=== PATIENT | female | born 1995 | race Two or more races ===

== ENCOUNTER 2024-07-17 03:56 | Inpatient (IN) | payer MEDICAID ==
[2024-07-15 11:56] LABS: Basophils # (auto) 0 10 ^3/uL (0-0.2); Basophils % (auto) 0.2 % (0.0-2.0); Neutrophils # (auto) 6.1 10 ^3/uL (1.6-8.6); White Blood Cell 9.2 10^3/uL (4.4-10.8)
[2024-07-15 11:58] LABS: Eosinophils # (auto) 0.2 10 ^3/uL (0-0.8); Eosinophils % (auto) 1.8 % (0.0-7.0); Hemoglobin 11.7 g/dL (12.2-16.2); Lymphocytes # (auto) 2.4 10 ^3/uL (0.4-5.4); Lymphocytes % (auto) 25.8 % (10.0-50.0); Mean Corpuscular Hemoglobin 25.2 pg (28.0-32.0); Mean Corpuscular Hgb Conc. 32.5 g/dL (32.0-36.0); Mean Corpuscular Volume 77.6 fL (80.0-100.0); Monocytes # (auto) 0.5 10 ^3/uL (0-1.3); Monocytes % (auto) 5.7 % (0.0-12.0); Neutrophils % (auto) 66.5 % (37.0-80.0); Platelet Count (auto) 198 10^3/uL (140-450); Red Blood Cells 4.64 10^6/uL (4.0-5.20)
[2024-07-15 12:09] LABS: INR 0.96 (0.9-1.15); Partial Thromboplastin Time 27.6 SEC (24.5-34.5); Prothrombin Time 10.2 sec (9.3-11.8)
[2024-07-15 12:14] LABS: Albumin 4.1 g/dL (3.2-4.8); Alkaline Phosphatase 124 U/L (46-116); Anion Gap 9 (5-15); Aspartate Aminotransferase < 8 U/L (13-40); BUN/Creatinine Ratio 17.9 (10.0-20.0); Bilirubin, Total 0.3 mg/dL (0.2-1.0); Blood Urea Nitrogen 10 mg/dL (9-23); Calcium 9.1 mg/dL (8.7-10.4); Carbon Dioxide 21 mmol/L (20-31); Chloride 108 mmol/L (98-107); Glucose 109 mg/dL (74-106); Potassium 3.9 mmol/L (3.5-5.1); Sodium 138 mmol/L (136-145); Total Protein 6.8 g/dL (5.7-8.2)
[2024-07-15 12:18] LABS: Alanine Aminotransferase < 9 U/L (7-40)
[2024-07-15 12:27] LABS: Urine Bacteria FEW /hpf (None Seen); Urine Blood Negative /uL (Negative); Urine Clarity Clear (Clear); Urine Color Yellow (Yellow); Urine Mucus FEW (None Seen); Urine Protein, UAD TRACE (Negative); Urine Specific Gravity 1.032 (1.001-1.035); Urine Squamous Epithelial Cell FEW /hpf (<5); Urine Urobilinogen Normal (Negative); Urine WBC 2 /hpf (0 - 5); Urine pH 5.5 (5.0-9.0)
[2024-07-15 12:39] LABS: Amphetamine Screen, Urine Neg (NEGATIVE); Barbiturate Scree,Urine Neg (NEGATIVE); Benzodiazephine Screen, Urine Neg (NEGATIVE); Cocaine Screen, Urine Neg (NEGATIVE); Opiate Scree,Urine Neg (NEGATIVE); Phencyclidine Screen, Urine Neg (NEGATIVE)
[2024-07-15 12:40] LABS: Cannabinoid Screen, Urine Neg (NEGATIVE)
[~2024-07-17] VITALS: Ht 165.1 cm; Wt 0.5 kg
[2024-07-17] VITALS (14 sets, daily range): BP systolic 114–139; BP diastolic 63–103; PULSE 63–88; RESP 16–20; TEMP 97.5–98.7; O2SAT 88–98
[2024-07-17] MEDS: LACTATED RINGER'S 1,000 ML IV SCH (05:08)
[2024-07-17] MEDS: ceFAZolin 2 GM/D5W50ml 50 ML IV ONE (06:33)
[2024-07-17] MEDS ORDERED: fentaNYL CITRATE 100 MCG/2 ML VL ONE (06:47)
[2024-07-17] MEDS ORDERED: ONDANSETRON HCL 4 MG/2 ML VIAL ONE (06:47)
[2024-07-17] MEDS ORDERED: MORPHINE SULF PF 5 MG/10 ML VIAL ONE (06:47)
[2024-07-17] MEDS ORDERED: oxyTOCIN 10 UNIT/ML 10ML VIAL ONE (06:47)
[2024-07-17] MEDS ORDERED: DexAMETHasone SOD PHOS 10MG/1ML VIAL INJ ONE (06:47)
--- NOTE | 2024-07-17 07:47 | DVHHP ---
ADMIT DATE: 07/17/2024 CHIEF COMPLAINT: Scheduled repeat section with bilateral tubal ligation. HISTORY OF PRESENT ILLNESS: This is a 28-year-old female 3, para 2, estimated due date 07/22/2024, dated by 14 week ultrasound. The patient has a gestational age 39 weeks and 2 days today. She denies any symptoms of labor or rupture of membranes. She is scheduled for a repeat section with bilateral tubal ligation. The patient has a history of 2 prior sections. She has had good care that has been uncomplicated. Other risk factors include increased maternal BMI. PAST MEDICAL HISTORY: Negative. PAST SURGICAL HISTORY: x2. MEDICATIONS: vitamins. ALLERGIES: No known drug allergies. SOCIAL HISTORY: She is . Denies any tobacco, alcohol or illicit drug use. FAMILY HISTORY: Noncontributory. REVIEW OF SYSTEMS: A 14-point review of systems is negative as otherwise stated in the history of present illness. PHYSICAL EXAMINATION: VITAL SIGNS: Stable. GENERAL: She is alert, pleasant, no acute distress. HEENT: Normocephalic, atraumatic. Extraocular muscles intact. NECK: Supple, without any palpable thyromegaly. CARDIOVASCULAR: Regular rate and rhythm. No murmurs. LUNGS: Clear to auscultation bilaterally. ABDOMEN: Gravid, soft, nontender. Fundal height of 39. EXTREMITIES: Trace edema, no cyanosis. Negative Homans sign. PELVIC: Deferred. evaluation baseline FHR 130 beats per minute, moderate variability, positive accelerations, no decelerations, category 1, TOCO 2 in 10 mins. contractions. The patient's blood type O positive, rubella nonimmune, RPR reactive 1:2 titre, TPA negative, hepatitis B surface antigen negative, HIV negative. ASSESSMENT: Term intrauterine 39 weeks 2 days, previous x2, desires repeat, multiparity requesting voluntary permanent sterilization. PLAN: The patient will be admitted for repeat section with bilateral tubal ligation. The risks, benefits and alternatives to surgery have been discussed with the patient and informed consent has been obtained. Risks of scar, pain, bleeding, infection, injury to bowel, bladder, adjacent organs, all have been discussed with the patient and informed consent has been obtained. 1% failure rate of sterilization has been discussed with the patient and understands procedure is permanent and not reversible. Dandre Randolph DO CG/HUS TID: [id number] RECEIPT: [id number] MTDD
[2024-07-17] MEDS ORDERED: ONDANSETRON HCL 4 MG/2 ML VIAL IV PRN (09:00)
[2024-07-17] MEDS ORDERED: HYDROmorphone HCL 2 MG/ML VL/or syr IV PRN (09:00)
[2024-07-17] MEDS ORDERED: NALOXONE HCL 0.4 MG/ML VIAL IV PRN (09:00)
[2024-07-17] MEDS ORDERED: diphenhdrAMINE HCL 50 MG/1 ML VL IV PRN (09:00)
--- NOTE | 2024-07-17 09:07 | DVHOP ---
DATE OF SURGERY: 07/17/2024 PREOPERATIVE DIAGNOSES: * Term intrauterine 39+ weeks, previous section x2. * Multiparity, requesting voluntary female sterilization. FINAL DIAGNOSES: * Term intrauterine 39+ weeks, previous section x2. * Multiparity, requesting voluntary female sterilization. PROCEDURES PERFORMED: * Repeat low transverse section via Pfannenstiel skin incision. * Bilateral salpingectomy. SURGEON: Dandre Randolph DO POTATO CHIP FRYER: telephone technician. TYPE OF ANESTHESIA: Spinal. ANESTHESIOLOGIST: Bruno Chamberlain CRNA DESCRIPTION OF FINDINGS: Delivery of a liveborn female infant, cephalic presentation, 1+ meconium fluid, nuchal cord x1. Normal bilateral fallopian tubes and ovaries. Normal-appearing placenta. Single layer uterine closure. No adhesions. TECHNICAL PROCEDURE: After informed consent was obtained, the patient was taken to the operating room where her spinal anesthesia was found to be adequate. She was placed in the supine position with a slight leftward tilt. She was sterilely prepped and draped in usual sterile fashion. A Pfannenstiel skin incision was made through the prior scar. The incision was carried down sharply to the underlying layer of fascia and peritoneum. Entry into the peritoneal cavity was performed bluntly. The peritoneal incision was extended superiorly and inferiorly with good visualization of the bladder. The Moisés O retractor was placed into the incision. The vesicouterine peritoneum was dissected off the lower uterine segment and a bladder flap created digitally. Using a second scalpel, the lower uterine segment was incised in a low transverse fashion and the incision extended laterally in blunt fashion. The amniotic fluid membranes were ruptured. The fluid was 1+ meconium fluid. There was a nuchal/funic cord presentation. The baby was delivered atraumatically. After delivery of the , the nose and mouth were suctioned. The cord was clamped and cut after 60 seconds and the baby handed off to waiting pediatric team. Cord blood and cord gases were obtained. The placenta was manually removed. The uterus was exteriorized and cleared of all clots and debris using moist laparotomy sponges. The uterine incision was repaired with #1 Stratafix spiral suture in continuous running fashion with good tissue approximation and hemostasis obtained. Next, the left fallopian tube was found. It was grasped at the mid isthmic portion with a Truchas clamp. It was tied with two ties of 0 plain gut and a partial salpingectomy was performed. The fimbriated ends were also removed. There was slight bleeding from the mesosalpinx that was clamped with Annabel clamps and tied with 2-0 Vicryl. Good hemostasis was obtained. The procedure was repeated on the contralateral fallopian tube in similar fashion. The cut end of the fallopian tube was cauterized. The uterus was returned to the abdomen. The cul-de-sac and pericolic gutters were cleared of all clots and debris. The abdomen was irrigated with sterile water. Hemostasis was confirmed. The fallopian tubes and incision were inspected. Hemostasis was secured. At this point, all instrumentation was removed from the patient's abdomen. I then proceeded to close the rectus fascia using the #1 Stratafix suture. The incision was closed in continuous running fashion with good tissue approximation. The subcutaneous tissue was irrigated. Bleeding points controlled with cautery. The subcutaneous tissue was closed with 2-0 plain gut. The skin was then closed with 3-0 Monocryl in continuous running fashion. The Prineo wound closure device was used and then a sterile dressing was placed over the incisions. The patient tolerated the procedure well. COUNTS: Sponge, lap, and needle counts were correct x4. INTRAOPERATIVE COMPLICATIONS: None. ESTIMATED BLOOD LOSS: 800 mL. POSTOPERATIVE CONDITION: Stable. SPECIMENS: Left and right fallopian tube segments, placenta, cord blood, and cord gases. MEDICATIONS: The patient received 2 grams of Ancef prior to skin incision. DO LASHONDA Vieira TID: [id number] RECEIPT: [id number] [facility]
[2024-07-17] MEDS ORDERED: KETOROLAC TROMETH 30 MG/ML 1ML VIAL IV PRN (10:30)
[2024-07-17] MEDS: ceFAZolin 1GM/50ML 50 ML IV SCH (15:20)
[2024-07-17] MEDS: ACETAMINOPHEN IV 1000 MG/100ML (10MG/ML) IV PRN (16:29)
[2024-07-17] MEDS: LACTATED RINGER'S 1,000 ML IV ONE (19:40)
[2024-07-17] MEDS: NALBUPHINE HCL 10 MG/1ml INJECTION IV ONE (19:40)
[2024-07-18] VITALS (11 sets, daily range): BP systolic 105–138; BP diastolic 57–93; PULSE 66–92; RESP 15–20; TEMP 97.8–98.6; O2SAT 93–99
[2024-07-18 06:16] LABS: Basophils # (auto) 0 10 ^3/uL (0-0.2); Basophils % (auto) 0.1 % (0.0-2.0); Eosinophils # (auto) 0 10 ^3/uL (0-0.8)
[2024-07-18 06:17] LABS: Eosinophils % (auto) 0.2 % (0.0-7.0); Hematocrit 29.2 % (36.0-46.0); Hemoglobin 9.7 g/dL (12.2-16.2); Lymphocytes # (auto) 3.4 10 ^3/uL (0.4-5.4); Lymphocytes % (auto) 27.9 % (10.0-50.0); Mean Corpuscular Hemoglobin 25.5 pg (28.0-32.0); Mean Corpuscular Hgb Conc. 33.2 g/dL (32.0-36.0); Monocytes # (auto) 0.7 10 ^3/uL (0-1.3); Monocytes % (auto) 5.6 % (0.0-12.0); Neutrophils % (auto) 66.2 % (37.0-80.0); Platelet Count (auto) 191 10^3/uL (140-450); Red Blood Cells 3.79 10^6/uL (4.0-5.20); White Blood Cell 12.1 10^3/uL (4.4-10.8)
--- NOTE | 2024-07-18 07:06 | DVHPN2 ---
Progress Note Date Seen: Jul 18, 2024 Subjective POD#1 s/p R C/S and BTL S: Pain controlled, doing well. Lochia mild. Tolerating PO well + Flatus vital signs Vital Sign Date Time Temp Pulse Resp B/P (MAP) Pulse Ox O2 Delivery O2 Flow Rate FiO2 07/18/24 05:00 66 18 127/60 (82) 93 07/18/24 03:00 98.6 98.6 07/17/24 19:00 Room Air 07/17/24 09:35 0.0 Total Intake and Output 07/17/24 07/17/24 07/18/24 15:00 23:00 07:00 Intake Total 500 ml 2025 ml Output Total 900 ml 2300 ml Balance -400 ml -275 ml medications Current Medications Medications Dose Ordered Sig/Leslie Route Start Time Stop Time Status Last Admin Dose Admin Lactated Ringer's 1,000 ml @ 125 mls/hr Q8H IV 07/17/24 04:15 07/17/24 06:39 125 MLS/HR Diphenhydramine HCl 25 mg Q4HP PRN IV 07/17/24 09:00 Ondansetron HCl 4 mg Q4HP PRN IV 07/17/24 09:00 Cefazolin Sodium 50 ml @ 100 mls/hr Q8H IV 07/17/24 15:30 07/18/24 07:59 07/17/24 23:17 100 MLS/HR Ketorolac Tromethamine 30 mg Q6HPRN PRN IV 07/17/24 10:30 07/22/24 10:29 laboratory and microbiology Laboratory Tests 07/18/24 05:50 07/15/24 11:35 Test 07/15/24 11:35 Range/Units Serum Glucose 109 H 74-106 mg/dL Objective O: AFVSS Chest: heart and lung sounds normal. Abd soft, non-tender, fundus firm, BS, no rebound or guarding, Incision - dressing and incision clean, dry, intact Ext Neg Homans, Non-tender, edema Lochia - minimal Labs reviewed Assessment/Plan 28y s/p Repeat C/S and BTL, POD#1 Precipitous drop in H/H, acute blood loss anemia (stable) RPR 1:1 (false +) Plan: Continue current care Pain control Advance orders. Plan discussed with: Patient GABRIELA POWERS DO Jul 18, 2024 07:06
[2024-07-18] MEDS ORDERED: IBUP-1455 PO (07:07)
[2024-07-18] MEDS ORDERED: HYDR-4902 PO (07:07)
[2024-07-18] MEDS ORDERED: BISACODYL 10 MG RECT SUPP PR PRN (09:45)
[2024-07-18] MEDS ORDERED: HYDROcodone-ACET 5/325MG TAB PO PRN ×2 (09:45)
[2024-07-18] MEDS: DOCUSATE SOD 100 MG CAP PO ONE (09:55)
[2024-07-18] MEDS: DOCUSATE CALCIUM 240 MG CAP PO SCH (10:11)
[2024-07-18] MEDS: DOCUSATE SOD 100 MG CAP PO SCH (10:11)
[2024-07-18] MEDS: SIMETHICONE 80 MG CHEWABLE TABLET PO SCH (12:14)
[2024-07-18] MEDS: IBUPROFEN 800 MG TAB PO PRN (16:44)
[2024-07-19 03:07] VITALS: BP 130/77; PULSE 89; RESP 16; TEMP 98.1; O2SAT 95
[2024-07-19 07:00] VITALS: BP 134/83; PULSE 78; RESP 16; TEMP 98; O2SAT 97
--- NOTE | 2024-07-19 09:33 | DVHPN2 ---
Chief Complaints Patient reports: No new complaints, Feels better Nursing reports: No new complaints, No abdominal pain, No chest pain, No dizziness, No cough Objective Vitals Vital Signs Date Time Temp Pulse Resp B/P (MAP) Pulse Ox O2 Delivery O2 Flow Rate FiO2 07/19/24 07:00 Room Air 07/19/24 07:00 98.0 78 16 134/83 (100) 97 98.0 07/17/24 09:35 0.0 Medications Current Medications Medications (Trade) Dose Ordered Sig/Leslie Route PRN Reason Start Time Stop Time Status Last Admin Acetaminophen/ Hydrocodone Bitart ([place] 5/325MG Tab) 1 tab Q4HPRN PRN PO FOR PAIN 1-6 07/18/24 09:45 Acetaminophen/ Hydrocodone Bitart ([place] 5/325MG Tab) 2 tab Q4HPRN PRN PO FOR PAIN 7-10 07/18/24 09:45 Bisacodyl (Dulcolax Suppository) 10 mg DAILYP PRN MT FOR CONSTIPATION 07/18/24 09:45 Dimethicone (Mylicon Tab) 80 mg QID PO 07/18/24 12:00 07/19/24 05:32 Docusate Calcium (Surfak Capsule) 240 mg DAILY PO 07/18/24 10:00 07/18/24 10:11 Docusate Sodium (Colace Capsule) 100 mg Q12HR PO 07/18/24 10:00 07/18/24 22:32 Ibuprofen (Motrin Tablet) 800 mg Q8HP PRN PO BREAKTHROUGH PAIN 07/18/24 09:45 07/19/24 05:32 General: Normal ENT: Normal Neck: Normal Lungs: Normal Cardiovascular: Normal Abdominal: Normal (wounds c/d/i) Musculoskeletal: Normal Extremities: Normal Skin: Normal Neurological: Normal Studies Laboratory Tests 07/18/24 05:50 07/15/24 11:35 Test 07/15/24 11:35 Range/Units Serum Glucose 109 H 74-106 mg/dL Ass/Plan Assessment Status post section stable improved requesting discharge home Plan See discharge summary see discharge orders SACHA MARIE DO Jul 19, 2024 09:33
--- NOTE | 2024-07-19 09:35 | DVHDS2 ---
Obstetrics Discharge Summary Obstetrics Discharge Summary Date of Admission: Jul 17, 2024 Date of Discharge: Jul 19, 2024 Reason For Admission: Section (Repeat) Procedures: Ultrasound Intrapartum Procedures: Procedures: None Operative Complicat: None Discharge Diagnosis: Term -Delivered Discharge Information: Activity (Unrestricted), Diet (Routine), Medications (Name:), Instructions ( precautions hemorrhage, fever, if 3rd occur she is to follow up immediately ER or primary OB), Discharge to (Home), Discarge date (July 19, 2024) SACHA MARIE DO Jul 19, 2024 09:35
[2024-07-19] MEDS: MEASLES, MUMPS & RUBELLA VAC(MMRII) 0.5ML SC ONE (10:03)
[2024-07-19 10:36] VITALS: BP 149/85; PULSE 79; RESP 18; TEMP 97.8; O2SAT 97
[2024-07-20 11:07] LABS: Treponema Pallidum Ab LC Non Reactive (Non Reactive)
== END 2024-07-19 11:18 | disposition home or self-care (01) | DRG 539 ==
LOC: LDRP 03:56
PROVIDERS: ADMIT Obstetrics & Gynecology; ATTEND Obstetrics & Gynecology
PROC: 10D00Z1 Extraction of Products of Conception, Low, Open Approach (ICD-10-PCS; principal; 2024-07-17)
PROC: 0UB70ZZ Excision of Bilateral Fallopian Tubes, Open Approach (ICD-10-PCS; 2024-07-17)
DX: O34.211 Maternal care for low transverse scar from previous cesarean delivery (principal); D62 Acute posthemorrhagic anemia; O90.81 Anemia of the puerperium; Z37.0 Single live birth; Z3A.39 39 weeks gestation of pregnancy; Z30.2 Encounter for sterilization
CPT/HCPCS: 36415; 59025; 80053; 80307; 81001; 85025; 85610; 85730; 86592; 86780; 86803; 86850; 86900; 86901; 94760; 94762; 96360; 96361; G0378; J0131; J1100; J2405; J2590